=== PATIENT | female | born 1965 | race Asian ===

== ENCOUNTER 2024-02-20 07:57 | Day surgery (SDC) | payer OTHER ==
[2024-02-15 13:31] VITALS: BMI 22.6
[2024-02-20] MEDS ORDERED: LIDOCAINE 1% P/F 10 MG/ML VIAL ONE (08:18)
[2024-02-20] MEDS ORDERED: CARBACHOL 0.01% INTRA-OCULAR 1.5 ML VIAL ONE (08:18)
[2024-02-20] MEDS ORDERED: NEO/POLYMYX B SULF/DEXAMETH OPHTHALMIC 5ML BOTTLE ONE (08:18)
[2024-02-20] MEDS ORDERED: BSS (NA/CA/MG/K) BALANCED SALT SOLUTION OPHTH SOLN 15 ML BOTTLE ONE (08:18)
[2024-02-20] MEDS ORDERED: TETRACAINE 0.5% OPHTH SOLN 2 ML BOTTLE ONE (08:18)
[2024-02-20] MEDS: CIPROFLOXACIN 0.3% EYE DROPS 5 ML BOTTLE ONE (08:25)
[2024-02-20] MEDS: PHENYLEPHRINE 2.5% OPTHALMIC DROP 2ML BOTTLE ONE (08:25)
[2024-02-20] MEDS: CYCLOPENTOLATE 2% OPHTH SOLN 2 ML BOTTLE ONE (08:25)
[2024-02-20] MEDS: TROPICAMIDE 1% OPHTH SOLN 15 ML BOTTLE ONE (08:25)
[2024-02-20] MEDS ORDERED: MIDAZOLAM HCL 2 MG/2 ML SINGLE DOSE VIAL ONE (08:53)
[2024-02-20 10:04] VITALS: RESP 18; TEMP 97.8
[2024-02-20 10:21] VITALS: BP 102/56; PULSE 69
== END 2024-02-20 10:20 | disposition home or self-care (01) ==
LOC: FASU 07:57
PROVIDERS: ATTEND Ophthalmology
PROC: 08RK3JZ Replacement of Left Lens with Synthetic Substitute, Percutaneous Approach (ICD-10-PCS; principal; 2024-02-20 09:30)
DX: H26.8 Other specified cataract (principal)
CPT/HCPCS: 66984; V2632

== ENCOUNTER 2024-03-12 07:53 | Day surgery (SDC) | payer OTHER ==
[2024-03-05 17:29] VITALS: BMI 22.6
[2024-03-12] MEDS: CYCLOPENTOLATE 2% OPHTH SOLN 2 ML BOTTLE ONE (08:10)
[2024-03-12] MEDS: TROPICAMIDE 1% OPHTH SOLN 15 ML BOTTLE ONE (08:10)
[2024-03-12] MEDS: PHENYLEPHRINE 2.5% OPTHALMIC DROP 2ML BOTTLE ONE (08:10)
[2024-03-12] MEDS: CIPROFLOXACIN 0.3% EYE DROPS 5 ML BOTTLE ONE (08:10)
[2024-03-12] MEDS ORDERED: NEO/POLYMYX B SULF/DEXAMETH OPHTHALMIC 5ML BOTTLE ONE (08:14)
[2024-03-12] MEDS ORDERED: TETRACAINE 0.5% OPHTH SOLN 2 ML BOTTLE ONE (08:14)
[2024-03-12] MEDS ORDERED: BSS (NA/CA/MG/K) BALANCED SALT SOLUTION OPHTH SOLN 15 ML BOTTLE ONE (08:14)
[2024-03-12] MEDS ORDERED: LIDOCAINE 1% P/F 10 MG/ML VIAL ONE (08:14)
[2024-03-12] MEDS ORDERED: CARBACHOL 0.01% INTRA-OCULAR 1.5 ML VIAL ONE (08:14)
[2024-03-12] MEDS ORDERED: MIDAZOLAM HCL 2 MG/2 ML SINGLE DOSE VIAL ONE (09:31)
[2024-03-12 13:08] VITALS: TEMP 97.1
[2024-03-12 13:23] VITALS: BP 93/38; PULSE 59; RESP 15
== END 2024-03-12 10:35 | disposition home or self-care (01) ==
LOC: FASU 07:53
PROVIDERS: ATTEND Ophthalmology
PROC: 08RJ3JZ Replacement of Right Lens with Synthetic Substitute, Percutaneous Approach (ICD-10-PCS; principal; 2024-03-12 09:45)
DX: H26.8 Other specified cataract (principal)
CPT/HCPCS: 66984; V2632

== ENCOUNTER 2024-06-26 19:06 | Emergency (ER) | payer OTHER ==
[2024-06-26 19:23] VITALS: RESP 18; BMI 22.6
[2024-06-26 19:38] VITALS: BP 125/63; PULSE 65; TEMP 98.6
[2024-06-26] MEDS ORDERED: LIDOCAINE HCL 1%, 10 MG/ML (20ML VIAL) ONE (21:55)
[2024-06-26] MEDS ORDERED: morphine SULFATE 4 MG/ML VIAL ONE (22:16)
[2024-06-26] MEDS: morphine CARPU-JECT 4 MG/1 ML DISP.SYRIN IVPUSH ONE (22:26)
[2024-06-26] MEDS: ONDANSETRON 4 MG/2 ML VIAL IVPUSH ONE ×2 (22:54→23:18)
[2024-06-26] MEDS ORDERED: ONDANSETRON 4 MG/2 ML VIAL ONE (23:09)
== END 2024-06-26 23:35 | disposition home or self-care (01) ==
LOC: FER 19:06
DX: S62.102A Fracture of unspecified carpal bone, left wrist, initial encounter for closed fracture (principal); W18.30XA Fall on same level, unspecified, initial encounter; Y93.73 Activity, racquet and hand sports
CPT/HCPCS: 73110-TC-LT-FY; 73130-TC-LT-FY; 99283-25